=== PATIENT | female | born 1940 | race Two or more races ===

== ENCOUNTER 2023-06-03 18:55 | Emergency (ER) | payer OTHER ==
[~2023-06-03] VITALS: Ht 154.9 cm; Wt 50.0 kg
[2023-06-03 20:32] LABS: Basophils # (auto) 0 10 ^3/uL (0-0.2); Basophils % (auto) 0.7 % (0.0-2.0); Eosinophils # (auto) 0.1 10 ^3/uL (0-0.8); Eosinophils % (auto) 2.2 % (0.0-7.0); Hematocrit 30.5 % (36.0-46.0); Hemoglobin 9.9 g/dL (12.2-16.2); Mean Corpuscular Hemoglobin 27.3 pg (28.0-32.0); Mean Corpuscular Hgb Conc. 32.5 g/dL (32.0-36.0); Mean Corpuscular Volume 84.1 fL (80.0-100.0); Monocytes # (auto) 0.4 10 ^3/uL (0-1.3); Monocytes % (auto) 7.7 % (0.0-12.0); Neutrophils % (auto) 53.4 % (37.0-80.0); Red Blood Cells 3.63 10^6/uL (4.0-5.20); Red Cell Distribution Width 15.8 % (11.8-14.3); White Blood Cell 5.6 10^3/uL (4.4-10.8)
[2023-06-03 20:52] LABS: Alanine Aminotransferase 13 U/L (7-40); Albumin 4.4 g/dL (3.2-4.8); Alkaline Phosphatase 92 U/L (46-116); Anion Gap 5 (5-15); Aspartate Aminotransferase 22 U/L (13-40); BUN/Creatinine Ratio 23.1 (10.0-20.0); Bilirubin, Total 0.2 mg/dL (0.2-1.0); Blood Urea Nitrogen 30 mg/dL (9-23); Calcium 9.4 mg/dL (8.5-10.1); Carbon Dioxide 26 mmol/L (20-30); Chloride 108 mmol/L (98-107); Glucose 164 mg/dL (74-106); Potassium 4.2 mmol/L (3.5-5.1); Sodium 139 mmol/L (136-145); Total Protein 6.3 g/dL (5.7-8.2)
[2023-06-03 20:54] LABS: INR 1.11 (0.9-1.15); Partial Thromboplastin Time 26.3 SEC (24.5-34.5); Prothrombin Time 11.6 sec (9.3-11.8)
[2023-06-03 21:00] VITALS: PULSE 67; RESP 12; O2SAT 95
[2023-06-03 21:26] LABS: Urine Bacteria NONE SEEN /hpf (None Seen); Urine Blood Negative /uL (Negative); Urine Clarity Clear (Clear); Urine Color Colorless (Yellow); Urine Protein, UAD TRACE (Negative); Urine Urobilinogen Normal (Negative); Urine WBC 3 /hpf (0 - 5)
[2023-06-03] MEDS: cefTRIAXone 1GM/50ML D5W 50 ML IV ONE (23:30)
[2023-06-03] MEDS ORDERED: CIPR-173 PO (23:58)
[2023-06-04] MEDS: SOD CHL 0.45% 1,000 ML IV ONE (01:23)
[2023-06-04] MEDS: LORazepam 2MG/ML-1ML VIAL IV ONE (03:55)
[2023-06-04 07:45] VITALS: TEMP 98.2
[2023-06-04 07:51] VITALS: PULSE 61; RESP 14; O2SAT 100
[2023-06-04 10:49] VITALS: BP 166/66; PULSE 58; RESP 15; O2SAT 99
[2023-06-04] MEDS: cefTRIAXone 1GM/50ML D5W 50 ML IV ONE (14:19)
== END 2023-06-04 13:46 | disposition home or self-care (01) ==
LOC: EEVIPCON 18:55 → ER 18:55 → EDBD 18:55 → ER 23:55
DX: R53.1 Weakness (principal); N39.0 Urinary tract infection, site not specified; N17.9 Acute kidney failure, unspecified; R79.1 Abnormal coagulation profile; R07.89 Other chest pain
CPT/HCPCS: 36415; 71045; 80053; 81001; 83880; 84484; 85025; 85379; 85610; 85730; 93005; 96361; 96365; 96375; 99285; J0696; J2060

== ENCOUNTER 2023-12-01 11:14 | Emergency (ER) | payer MEDICARE, MEDICAID ==
[~2023-12-01 11:14] MED LIST: CIPR-173 PO
== END 2023-12-01 12:31 | disposition left against medical advice (07) ==
LOC: ER 11:14
DX: R06.02 Shortness of breath (principal); Z53.21 Procedure and treatment not carried out due to patient leaving prior to being seen by health care provider